=== PATIENT | male | born 1965 | race Caucasian/White ===

== ENCOUNTER 2023-05-01 08:00 | Outpatient (CLI) | payer BC, SELFPAY | END 2023-05-01 08:01 | disposition home or self-care (01) | LOC: NFLDREF 05-03 06:29 | PROVIDERS: PCP Family Medicine; Referring Provider Family Medicine; Visit Provider Family Medicine | DX: Z00.00 Encounter for general adult medical examination without abnormal findings (principal); E78.00 Pure hypercholesterolemia, unspecified; E66.9 Obesity, unspecified; Z12.5 Encounter for screening for malignant neoplasm of prostate | CPT/HCPCS: 80053; 80061; 84153 ==

== ENCOUNTER 2025-02-09 12:59 | Outpatient (CLI) | payer BC, SELFPAY | END 2025-02-09 13:00 | disposition home or self-care (01) | PROVIDERS: PCP Family Medicine; Visit Provider Family Medicine | DX: E78.00 Pure hypercholesterolemia, unspecified (principal); Z11.59 Encounter for screening for other viral diseases; Z12.5 Encounter for screening for malignant neoplasm of prostate | CPT/HCPCS: 80053; 80061; 86803; G0103 ==

== ENCOUNTER 2025-03-06 10:15 | Outpatient (CLI) | payer BC, SELFPAY ==
--- NOTE | 2025-03-06 10:45 | CRLHL7_ITS ---
For Patients: As a result of the Century Cures Act, medical imaging exams and procedure reports are released immediately into your electronic medical record. You may view this report before your referring provider. If you have questions, please contact your health care provider. INDICATION: Elevated liver tests COMPARISON: none TECHNIQUE: Real time bird scale imaging and color Doppler analysis was performed of the right upper quadrant. FINDINGS: The visualized liver is of normal size and has increased echogenicity. Normal proximal aorta. Incomplete visualization of the IVC. There is no evidence of ascites. The gallbladder is of normal size and there is no evidence of intraluminal stones or sludge. The gallbladder wall measures 3 mm in thickness. The common bile duct is of normal size and measures 3 mm in diameter at the level of the fany hepatis. The pancreas is obscured by overlying bowel gas. There is no evidence of a stone or hydronephrosis within the right kidney. The right kidney measures 13.3 cm in length. IMPRESSION: Hepatic steatosis. Remainder unremarkable given limitations of bowel gas. Dictated by Eduard Silva MD @ 03/06/2025 11:09:55 AM (Electronically Signed)
== END 2025-03-06 10:16 | disposition home or self-care (01) ==
PROVIDERS: PCP Family Medicine; Visit Provider Family Medicine
DX: R79.89 Other specified abnormal findings of blood chemistry (principal); K76.0 Fatty (change of) liver, not elsewhere classified; K60.1 Chronic anal fissure
CPT/HCPCS: 76705

== ENCOUNTER 2025-06-29 15:54 | Outpatient (CLI) | payer BC, SELFPAY | END 2025-06-29 15:55 | disposition home or self-care (01) | PROVIDERS: PCP Family Medicine; Visit Provider Family Medicine | DX: Z01.818 Encounter for other preprocedural examination (principal) | CPT/HCPCS: 80048; 80061; 80076 ==